=== PATIENT | male | born 1985 | race Caucasian/White ===

== ENCOUNTER 2023-02-01 12:42 | Emergency (ER) | payer OTHER ==
[~2023-02-01] VITALS: Ht 177.8 cm; Wt 60.0 kg
[~2023-02-01 12:42] MED LIST: AMOX TR-K CLV1 EAC1 PO; HYDROXYZINE PAM25 MG PO; LITHIUM CARBON300 M2 PO; SEROQUEL300 MG PO; TYLENOL EXTRA500 MG PO; VITAMIN D21250 MCG PO
[2023-02-01 20:15] VITALS: BP 122/78
== END 2023-02-01 20:15 | disposition home or self-care (01) ==
LOC: ED 12:42
DX: E86.0 Dehydration (principal); F15.929 Other stimulant use, unspecified with intoxication, unspecified; F31.9 Bipolar disorder, unspecified; F20.9 Schizophrenia, unspecified; F17.200 Nicotine dependence, unspecified, uncomplicated; Z79.899 Other long term (current) drug therapy
CPT/HCPCS: 36415; 80053; 80178; 81001; 83690; 83735; 85025; 96374; 96375; 99284-25; 99406; J1200; J1790; J7030

== ENCOUNTER 2023-07-11 18:01 | Emergency (ER) | payer OTHER ==
[~2023-07-11] VITALS: Ht 177.8 cm; Wt 77.6 kg
[2023-07-11 18:51] LABS: BASOPHILS 0.2 % (0-2); EOSINOPHILS 0.3 % (0-6); HEMATOCRIT 40.4 % (35.0-50.0); HEMOGLOBIN 13.4 g/dL (12.0-18.0); LYMPHOCYTES 3.4 % (24-44); MCH 31.7 (27-36); MCHC 33.2 g/dl (30-36); MCV 95.3 fl (81-99); MONOCYTES 7.1 % (0-12); PLATELET COUNT 160 K/uL (140-440); RBC 4.23 M/ul (4.3-5.7); RDW 13.9 (10.5-15.0)
[2023-07-11 19:05] LABS: ALBUMIN 3.1 g/dL (3.4-5.0); ALBUMIN/GLOBULIN RATIO 0.82 (1.1-2.4); ANION GAP 14.5 (7-21); BILIRUBIN, TOTAL 1.2 ng/dL (0.2-1.0); BUN/CREATININE RATIO 9.44 (6.0-28.6); CALCIUM 8.4 mg/dL (8.5-10.1); CREATININE, SERUM 1.27 mg/dL (0.70-1.30); POTASSIUM 3.5 mmol/L (3.5-5.1); PROTEIN, TOTAL 6.9 g/dL (6.4-8.2)
[2023-07-11 19:08] LABS: LACTIC ACID, BLOOD 1.7 mmol/L (0.4-2.0)
[2023-07-11 20:06] VITALS: BP 109/67
== END 2023-07-11 20:06 | disposition left against medical advice (07) ==
LOC: ED 18:01
PROVIDERS: Emergency Medicine
DX: L03.113 Cellulitis of right upper limb (principal); F17.200 Nicotine dependence, unspecified, uncomplicated; Z79.899 Other long term (current) drug therapy
CPT/HCPCS: 36415; 51701; 71045; 80053; 83605; 85025; 99283-25; A9270; J0692; J0878; J7030

== ENCOUNTER 2023-07-15 15:35 | Observation (INO) | payer OTHER | END 2023-07-16 15:15 | disposition home or self-care (01) | LOC: ED 15:35 → MS 15:36 | PROVIDERS: ADMIT Internal Medicine | DX: L03.113 Cellulitis of right upper limb (principal); F20.9 Schizophrenia, unspecified; D72.829 Elevated white blood cell count, unspecified; Z11.52 Encounter for screening for COVID-19 ==